=== PATIENT | male | born 1985 | race Caucasian/White ===

== ENCOUNTER 2019-05-29 09:16 | Emergency (ER) | payer SELFPAY ==
[2019-05-29 09:18] VITALS: BP 139/86; PULSE 58; RESP 18; TEMP 36; O2SAT 100; BMI 24.6
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
== END 2019-05-29 10:43 | disposition home or self-care (01) ==
PROVIDERS: Emergency Provider Emergency Medicine
DX: M54.2 Cervicalgia (principal); M54.6 Pain in thoracic spine; M25.512 Pain in left shoulder; V89.2XXA Person injured in unspecified motor-vehicle accident, traffic, initial encounter; Y93.9 Activity, unspecified; Y92.9 Unspecified place or not applicable
CPT/HCPCS: 72040; 72072; 73030; 99282